=== PATIENT | male | born 1960 | race Caucasian/White ===

== ENCOUNTER 2019-11-23 08:10 | Day surgery (SDC) | payer BC, MEDICARE ==
[~2019-11-23 08:10] MED LIST: Lactated Ringers 1,000 ML IV SCH; Lidocaine 1% 4 ML ONE; Lidocaine 1%/Sod Bicarbonate in NS 8.4% 1 ML Syringe IDERM PRN; Propofol 200 MG/20 ML SDV ONE; Sodium Chloride 0.9% 10 ML Syringe FLUSH PRN; fentaNYL 100 MCG/2 ML SDV ONE
--- NOTE | 2019-11-23 08:34 | PCM.PREANE ---
Preanesthetic Assessment - Anesthesia/Transfusion/Family Hx Anesthesia History: No Prior Anesthesia Family History of Anesthesia Reaction: No Transfusion History: No Prior Transfusion(s) Intubation History: Unknown - Review of Systems General: No Symptoms Pulmonary: No Symptoms Cardiovascular: No Symptoms (elevated cholesterol) Gastrointestinal: No Symptoms (GERD on occasion) Neurological: No Symptoms Other: Reports: Anxiety - Physical Assessment NPO Status Date: 11/23/19 NPO Status Time: 04:00 Vital Signs: HR: 77 BP: 124/81 Resp: 16 Sat: 94% Temp: 98.1 Height: 1.8 m Weight: 108.409 kg ASA Class: 2 Mental Status: Alert & Oriented x3 Airway Class: Mallampati = 3 Dentition: Reports: Normal Dentition, Caries Thyro-Mental Finger Breadths: 3 Mouth Opening Finger Breadths: 3 ROM/Head Extension: Full Lungs: Clear to Auscultation, Normal Respiratory Effort Cardiovascular: Regular Rate, Regular Rhythm, No Murmurs - Lab Values: All labs reviewed and noted and within acceptable ranges to proceed with procedure. - Allergies Allergies/Adverse Reactions: Allergies Allergy/AdvReac Type Severity Reaction Status Date / Time No Known Allergies Allergy Verified 11/23/19 07:12 - Anesthesia Plan Pre-Op Medication Ordered: None - Acknowledgements Anesthesia Type Planned: MAC Pt an Appropriate Candidate for the Planned Anesthesia: Yes Alternatives and Risks of Anesthesia Discussed w Pt/Guardian: Yes Pt/Guardian Understands and Agrees with Anesthesia Plan: Yes PreAnesthesia Questionnaire - CURRENT (IN HOUSE) MEDS Current Meds: Current Medications Lactated Ringer's (Ringers, Lactated) 1,000 mls @ 125 mls/hr IV ASDIRECTED EMMANUELLE Stop: 11/23/19 23:00 Lidocaine/Sodium Bicarbonate (Buffered Lidocaine 1% In Ns 8.4%) 0.25 ml IDERM ONETIME PRN PRN Reason: Prior to IV Start Stop: 11/23/19 18:00 Sodium Chloride (Saline Flush) 10 ml FLUSH ASDIRECTED PRN PRN Reason: Keep Vein Open Stop: 11/23/19 18:00 Discontinued Medications Fentanyl (Sublimaze) Confirm Administered Dose 100 mcg .ROUTE .STK-MED ONE Stop: 11/23/19 07:26 Lidocaine HCl (Xylocaine-Mpf 1%) Confirm Administered Dose 4 mls @ as directed .ROUTE .STK-MED ONE Stop: 11/23/19 07:26 Propofol (Diprivan 20 Ml) Confirm Administered Dose 200 mg .ROUTE .STK-MED ONE Stop: 11/23/19 07:26
[2019-11-23] MEDS ORDERED: Midazolam 1 MG/ML 2 ML SDV ONE (09:01)
[2019-11-23] MEDS ORDERED: Lidocaine 1% with EPINEPHrine 1:100,000 20 ML MDV ONE (09:46)
[2019-11-23] MEDS ORDERED: Propofol 200 MG/20 ML SDV ONE (09:51)
--- NOTE | 2019-11-23 10:28 | PCM48HPAN ---
Post Anesthesia Note - EVALUATION WITHIN 48HRS OF ANESTHETIC Vital Signs in Normal Range: Yes Patient Participated in Evaluation: Yes Respiratory Function Stable: Yes Airway Patent: Yes Cardiovascular Function Stable: Yes Hydration Status Stable: Yes Pain Control Satisfactory: Yes Nausea and Vomiting Control Satisfactory: Yes Mental Status Recovered: Yes Vital Signs: Last Vital Signs Temp 98.1 F 11/23/19 08:15 Pulse 77 11/23/19 08:15 Resp 16 11/23/19 08:15 BP 124/81 11/23/19 08:15 Pulse Ox 94 L 11/23/19 08:15 1023 83 16 97.4 127/83 92% on 2 L
--- NOTE | 2019-11-23 10:29 | PCM.PRNOTE ---
- Free Text/Narrative Note: Date: 11/23/2019 Procedure: screening colonoscopy Endoscopist: Manuel Garrett MD Findings: palpable 1 cm submucosal nodule at 6 o'clock within the sphincter complex, with overlying pile. This was biopsied. otherwise normal colonoscopy with good prep, performed using the pediatric colonoscope. Detailed report: Endoscopy suite and placed in left lateral decubitus position. Monitored anesthesia was administered, and timeout was performed. Visual inspection of the anus was normal. On digital rectal exam there was a palpable 1 cm rubbery mobile nodule at the posterior midline within the sphincter complex. Was an overlying skin tag/mucosal pile corresponding to the palpable lesion. The pediatric colonoscope was advanced all the way to the ileocecal valve. The prep was noted to be very good. The scope was slowly withdrawn and the mucosal surfaces were carefully inspected. No polyps were identified. No diverticular disease identified. On retroflexion of the scope within the rectum, no hemorrhoidal disease was appreciated. After withdrawal of the scope, an anal speculum was inserted to aid with visualization of the after mentioned lesion. 10 cc of local anesthetic was injected submucosally at the site, and an Allis clamp was placed on the mucosa overlying the lesion to aid with retraction. A small incision was made using the electrode distal to the lesion, and this plane was developed using scissors. Tissue was taken down to the level of the hemorrhoidal complex and sent for pathology. Hemostasis was achieved using the electrode and packing with gauze. The patient tolerated the procedure well. Manuel Garrett MD General Surgery
[2019-11-23] MEDS ORDERED: Simethicone 80 MG Tab.Chew PO ONE (11:33)
== END 2019-11-23 12:13 | disposition home or self-care (01) ==
LOC: JD.SDS 08:10
PROVIDERS: ATTEND Surgery
DX: Z12.11 Encounter for screening for malignant neoplasm of colon (principal); K62.89 Other specified diseases of anus and rectum; E78.00 Pure hypercholesterolemia, unspecified
CPT/HCPCS: 45380; A9270; J2001; J2250; J2704; J3010; J7120